=== PATIENT | male | born 1995 | race Asian ===

== ENCOUNTER 2018-03-30 19:25 | Emergency (ER) | payer SELFPAY ==
[~2018-03-30] VITALS: Ht 182.9 cm; Wt 89.4 kg
[2018-03-30 19:34] VITALS: BP 161/82
--- NOTE | 2018-03-30 19:40 | NUR ---
PATIENT AMBULATED TO ER BED 11.
--- NOTE | 2018-03-30 19:45 | NUR ---
PATIENT IS A 22 Y/O MALE WHO PRESENTS TO THE ED C/O ABD PAIN. PT STATES PAIN STARTED AT 1030 THIS MORNING. PT REPORTS 3/10 ACHING RLQ ABD PAIN THAT DOES NOT RADIATE. PT DENIES CP, SOB, N/V/D. PT AAOX4, RR EVEN/UNLABORED. PT REPOSITIONED FOR COMFORT, BED IN LOWEST POSITION. ER MD DR. BENITES NOTIFIED. WILL CONTINUE TO MONITOR.
[2018-03-30 20:45] VITALS: BP 149/81
--- NOTE | 2018-03-30 20:45 | NUR ---
Patient discharged with v/s stable. Written and verbal after care instructions given and explained. Patient alert, oriented and verbalized understanding of instructions. Ambulatory with steady gait. All questions addressed prior to discharge. ID band removed. Patient advised to follow up with PMD. Rx of NAPROSYN 500MG given. Patient educated on indication of medication including possible reaction and side effects. Opportunity to ask questions provided and answered.
== END 2018-03-30 20:45 | disposition home or self-care (01) ==
LOC: MED 19:25
DX: S39.011A Strain of muscle, fascia and tendon of abdomen, initial encounter (principal); J45.909 Unspecified asthma, uncomplicated; X58.XXXA Exposure to other specified factors, initial encounter; Y93.89 Activity, other specified; Y92.89 Other specified places as the place of occurrence of the external cause; Y99.8 Other external cause status
CPT/HCPCS: 99283